=== PATIENT | female | born 1995 | race Caucasian/White ===

== ENCOUNTER → 2017-08-18 | Outpatient (CLI) | payer MEDICAID ==
[~2017-08-18] MED LIST: ETON68IM SQ; METH5TAB85 PO
[2017-08-18 10:26] LABS: PLATELET COUNT, AUTOMATED 244 K/uL (150-450)
== END ==
LOC: LAB 10:02
PROVIDERS: ATTEND Nurse Practitioner Primary Care
DX: R10.9 Unspecified abdominal pain (principal)
CPT/HCPCS: 36415; 81001; 81025; 82040; 82247; 82310; 82374; 82435; 82565; 82947; 84075; 84132; 84155; 84295; 84450; 84460; 84520; 85025

== ENCOUNTER → 2017-08-18 | Outpatient (CLI) | payer MEDICAID ==
[~2017-08-18] MED LIST changes: +IOPAMIDOL 76% 75 ML INFUS BTL 75 ML ONE
--- NOTE | 2017-08-18 14:31 | RADIOLOGY IMAGING REPORT ---
FACILITY: [facility] - [place] PATIENT NAME: Lady Stewart : 1995 MR: [id number] V: [id number] EXAM DATE: ORDERING PHYSICIAN: ALFREDITO ALMONTE TECHNOLOGIST: Location: [facility] [place] Patient: Lady Stewart : 1995 Visit/Account:[id number] Date of Sevice: 08/18/2017 CT abdomen with IV contrast CT pelvis with IV contrast History: Lower abdominal pain and bright red blood in stool. COMPARISON STUDIES: none. TECHNIQUE: Axial CT images were obtained through the abdomen and pelvis during injection of nonioni c iodinated intravenous contrast. Reformatted coronal and sagittal images were also obtained. Contrast: 75 ml of Isovue-370 IV contrast. One of the following dose optimization techniques was utilized in the performance of this exam: Autom ated exposure control; adjustment of the mA and/or kV according to the patient's size; or use of an i terative reconstruction technique. Specific details can be referenced in the facility's radiology C T exam operational policy. FINDINGS: Chest bases: Right lower lobe noncalcified 3 mm oval nodule, image 7. Liver: Normal. Gallbladder and bile ducts: Gallbladder is present. Bile ducts are normal caliber. Spleen: size is normal. Pancreas: negative Adrenal glands: negative Kidneys: negative Pelvic structures: Retroverted uterus is noted. There is a dominant follicle within the right ov joyce. Left ovary is unremarkable. Bowel and mesenteries: Small bowel, colon, and rectum are unremarkable. Normal appendix. Free fluid or abscess: None Free air: None Vessels: negative Musculoskeletal: Negative Body wall: negative Lymph node assessment: negative IMPRESSION: Normal CT of the abdomen and pelvis. Report Dictated By: Luciana Stiles MD at 08/18/2017 1:59 PM Report E-Signed By: Luciana Stiles MD at 08/18/2017 2:28 PM WSN:[id number]
== END ==
LOC: CT 13:06
PROVIDERS: ATTEND Nurse Practitioner Primary Care
DX: R91.1 Solitary pulmonary nodule (principal)
CPT/HCPCS: 74177; Q9967

== ENCOUNTER → 2017-11-01 | Outpatient (CLI) | payer MEDICAID ==
[~2017-11-01] MED LIST changes: +DOXY-229 PO; -IOPAMIDOL 76% 75 ML INFUS BTL 75 ML ONE
== END ==
LOC: LAB 09:39
PROVIDERS: ATTEND Student in an Organized Health Care Education/Training Program
DX: Z02.9 Encounter for administrative examinations, unspecified (principal)

== ENCOUNTER → 2017-11-01 | Outpatient (CLI) | payer MEDICAID | LOC: LAB 09:44 | PROVIDERS: ATTEND Student in an Organized Health Care Education/Training Program | DX: N89.8 Other specified noninflammatory disorders of vagina (principal); R82.79 Other abnormal findings on microbiological examination of urine | CPT/HCPCS: 87088; 87210; 87491; 87591 ==